=== PATIENT | female | born 1945 | race Caucasian/White ===

== ENCOUNTER → 2019-02-27 | Outpatient (CLI) | payer MEDICARE, OTHER ==
[~2019-02-27] MED LIST: CODACE30; Flomax0.4 MG PO; GABA300; HALO.05TC; LOSA50 PO; Norco 5-325 Ta1 EACH PO; TIZANIDINE HCL2 MG; TIZANIDINE HCL4 MG PO
== END | disposition home or self-care (01) ==
LOC: LAB SHORT 16:38 → LAB EV 16:38
DX: R35.0 Frequency of micturition (principal)
CPT/HCPCS: 87086

== ENCOUNTER 2019-03-19 23:36 | Observation (INO) | payer MEDICARE, OTHER ==
[~2019-03-19] VITALS: Ht 160 cm; Wt 100.0 kg
[~2019-03-19 23:36] MED LIST changes: -Flomax0.4 MG PO; -Norco 5-325 Ta1 EACH PO
[2019-03-20 00:20] LABS: BASOPHILS ABSOLUTE AUTO 0.03 K/mm3 (0.00-0.23); BASOPHILS PERCENT AUTO 0 % (0-2); EOSINOPHILS ABSOLUTE AUTO 0.12 K/mm3 (0.00-0.68); EOSINOPHILS PERCENT AUTO 1 % (0-6); Hematocrit 39.1 % (33.0-51.0); IMMATURE GRAN ABSOLUTE AUTO 0.04 K/mm3 (0.00-0.10); IMMATURE GRAN PERCENT AUTO 0 % (0-1); LYMPHOCYTES ABSOLUTE AUTO 1.86 K/mm3 (0.84-5.20); LYMPHOCYTES PERCENT AUTO 17 % (21-46); MONOCYTES ABSOLUTE AUTO 0.72 K/mm3 (0.16-1.47); MONOCYTES PERCENT AUTO 7 % (4-13); Mean Corpuscular HGB 31.2 pg (26.0-34.0); Mean Corpuscular HGB Conc 33.2 g/dL (31.5-36.5); Mean Corpuscular Volume 94 fL (80-100); Mean Platelet Volume 10.5 fL (9.1-12.4); NEUTROPHILS ABSOLUTE AUTO 8.32 K/mm3 (1.96-9.15); NEUTROPHILS PERCENT AUTO 75 % (41-73); Platelet Count 227 K/mm3 (150-400); RDW Coefficient Variation 12.7 % (11.7-14.2); Red Blood Cell Count 4.17 M/mm3 (3.80-5.20); White Blood Cell Count 11.09 K/mm3 (4.00-11.30)
[2019-03-20 00:37] LABS: Albumin, Blood 3.3 g/dL (3.4-5.0); Albumin/Globulin Ratio 0.9 (0.8-1.8); Bilirubin, Total 0.3 mg/dL (0.1-1.0); Bun/Creatinine Ratio 19.3 (12.0-20.0); Calcium, Blood 8.7 mg/dL (8.5-10.1); Creatinine, Blood 1.09 mg/dL (0.40-1.00); Globulin, Blood 3.6 g/dL (2.2-4.0); Potassium, Blood 3.6 mmol/L (3.5-5.5); Total Protein, Blood 6.9 g/dL (6.4-8.2)
[2019-03-20 00:56] LABS: Source, Urine Clean Catch
[2019-03-20 00:59] LABS: Blood, Urine 2+ (Neg); Glucose Qualitative, Urine Neg (Neg); Ketones, Urine 1+ (Neg); Leukocyte Esterase, Urine 1+ (Neg); Nitrite, Urine Neg (Neg); Protein, Urine 1+ (Neg); Specific Gravity, Urine 1.025 (1.003-1.022); Urobilinogen, Urine 1+ (Normal)
[2019-03-20 01:06] LABS: Appearance, Urine Clear (Clear); Bilirubin, Urine 1+ (Neg); Color, Urine Yellow (P-Yellow)
[2019-03-20 01:07] LABS: Bacteria Few /hpf; Mucus Light (0-Heavy); Red Blood Cells, Urine 0-2 /hpf (0-2); Squamous Epithelial Cells Few /hpf (Few)
[2019-03-20] MEDS ORDERED: Flomax0.4 MG PO (03:44)
[2019-03-20] MEDS ORDERED: Norco 5-325 Ta1 EACH PO (03:44)
--- NOTE | 2019-03-20 07:45 | NUR ---
SHIFT SUMMARY PT WAS A NEW ADMIT THIS AM, ARRIVING ON THE FLOOR AT 0550. SHE WAS ADMITTED FOR KIDNEY STONES AND A UTI. SHE IS A&O X 4, AND INDEPENDENT IN THE ROOM. PT IS RECEIVING CONTINUOUS FLUIDS NS AT 125 ML/HR. WICK CATHETER IN PLACE. PER ER REPORT, PT HAS HAD MINIMAL URINE OUTPUT SINCE ARRIVAL. PT WAS MEDICATED ONCE WITH PRN FENTANYL FOR FLANK AND BACK PAIN. NO COMPLAINTS OF NAUSEA OR SOB. VITAL SIGNS STABLE. NO OTHER ACUTE CHANGES IN PT CONDITION NOTED SINCE ADMISSION. REPORT GIVEN TO ONCOMING RN.
--- NOTE | 2019-03-20 13:54 | NUR ---
[address] KELLER. REQUEST PT HOME MEDS, LOSARTAN, HE DENIED. DID ALFIE LINARES.
--- NOTE | 2019-03-20 15:40 | NUR ---
CALLED DR HERNANDEZ OFF. CALLED IN CONSULT. AURELIO CALLED BACK. HE OUT UNTIL MONDAY. CALLED DR KELLER. TC. CALLED [facility] RE CONSULT
--- NOTE | 2019-03-20 16:55 | NUR ---
PER PCU COMPOSITION PROFESSOR. PT AVERAGING 58-69. HAS DROPPED TO 48 TWICE. THEN PICKS UP. PT ASYMPTOMATIC.
--- NOTE | 2019-03-20 17:16 | NUR ---
PT PLEASANT TODAY. DENIES PAIN AT THIS TIME. STRAINED WICK CATH NO STONE NOTED. NO OTHER CONCERNS AT THIS TIME. BED IN LOW POSITION, CALL LITE IN REACH, CALLS APPROP.
--- NOTE | 2019-03-20 23:38 | NUR ---
PT TRANSFER TO [facility] VIA W/C. ALL BELONGINGS WITH PT AT THE TIME OF TRANSFER. REPORT GIVEN TO KAILEY DE JESUS AND FRAN DE JESUS.
--- NOTE | 2019-03-21 04:48 | NUR ---
SHIFT SUMMARY PT ADMITTED FOR R NEPHROLITHSASIS. FULL CODE. REGULAR DIET. FILTER ALL URINE TO COLLECT STONE AND SEND TO LAB FOR COMPOSITION ANALYSIS. DR. PERALTA CONSULT FOR 2MM STONE AT R UTEREROVESICAL JUNCTION CREATING HYDRONEPHROSIS. CONSULT FOR POSSIBLE STEN. KATHRYN WILL BE OUT UNTIL MONDAY AND WILL THE PATIENT UPON RETURN. PT IS INDEPENDENT IN HER ROOM. FILD START IV TO L FA. PT HAS A FOLE. TAKES MEDICATIONS WHOLE. PT TRANSFERRED FROM ROOM 351 THIS NIGHT. PT DID HAVE COMPLAINTS OF 5/10 PAIN THIS NIGHT. MEDICATED PER EMAR. PT HAS APPEARED TO SLEEP COMFORTABLY MOST OF THE NIGHT WITH NO APPARENT SIGNS OF ACUTE DISTRESS. ABLE TO MAKE NEEDS KNOWN AND CALL LIGHT IN REACH.
[2019-03-21 04:59] LABS: Hematocrit 34.9 % (33.0-51.0); Hemoglobin 11.2 g/dL (11.5-16.0); Mean Corpuscular HGB 30.5 pg (26.0-34.0); Mean Corpuscular HGB Conc 32.1 g/dL (31.5-36.5); Mean Corpuscular Volume 95 fL (80-100); Mean Platelet Volume 10.3 fL (9.1-12.4); Platelet Count 181 K/mm3 (150-400); RDW Coefficient Variation 13.2 % (11.7-14.2); RDW Standard Deviation 46.8 fL (35.1-46.3); Red Blood Cell Count 3.67 M/mm3 (3.80-5.20); White Blood Cell Count 7.74 K/mm3 (4.00-11.30)
[2019-03-21 05:48] LABS: Alanine Aminotransfer (ALT/SGP 24 U/L (12-78); Albumin, Blood 2.7 g/dL (3.4-5.0); Albumin/Globulin Ratio 0.9 (0.8-1.8); Alk Phos 112 U/L (50-136); Anion Gap 6 mmol/L (6-16); Aspartate Aminotrans (AST/SGOT 18 U/L (12-37); Bilirubin, Total 0.3 mg/dL (0.1-1.0); Blood Urea Nitrogen 17 mg/dL (8-24); Bun/Creatinine Ratio 18.5 (12.0-20.0); CO2, Blood 26 mmol/L (21-32); Calcium, Blood 7.9 mg/dL (8.5-10.1); Chloride, Blood 112 mmol/L (98-108); Creatinine, Blood 0.92 mg/dL (0.40-1.00); Globulin, Blood 2.9 g/dL (2.2-4.0); Glomerular Filtration Rate >60 (60-); Glucose, Blood 105 mg/dL (70-99); Phosphorus, Blood 2.7 mg/dL (2.5-4.9); Potassium, Blood 3.9 mmol/L (3.5-5.5); Sodium, Blood 144 mmol/L (136-145); Total Protein, Blood 5.6 g/dL (6.4-8.2)
--- NOTE | 2019-03-21 14:21 | NUR ---
DISCHARGE DISCHARGE INSTRUCTIONS, MEDICATION LIST AND FOLLOW UP APPOINTMENT REVIEWED WITH PT. QUESTIONS/CONCERNS ANSWERED. PT VERBALLY INDICATED UNDERSTANDING OF ALL INSTRUCTIONS RECEIVED. WAITING FOR RIDE HOME AT THIS TIME.
== END 2019-03-21 15:05 | disposition home or self-care (01) ==
LOC: ER 23:36 → MEDS 23:37
PROVIDERS: Emergency Medicine; ADMIT Internal Medicine
DX: N13.2 Hydronephrosis with renal and ureteral calculous obstruction (principal); E86.0 Dehydration; I10 Essential (primary) hypertension; Z79.899 Other long term (current) drug therapy; Z91.013 Allergy to seafood; Z88.8 Allergy status to other drugs, medicaments and biological substances; Z88.2 Allergy status to sulfonamides; Z88.7 Allergy status to serum and vaccine; Z91.09 Other allergy status, other than to drugs and biological substances
CPT/HCPCS: 36415; 51702; 51798; 74176; 80053; 81001; 83690; 84100; 85025; 85027; 87086; 96361; 96365; 96366; 96374; 96375; 96376; 99285-25; A9270-GY; G0378; J0696; J1885; J2405; J3010; J7030; P9612

== ENCOUNTER 2019-05-06 16:59 | Observation (INO) | payer MEDICARE, OTHER ==
[~2019-05-06] VITALS: Ht 165.1 cm; Wt 88.5 kg
[~2019-05-06 16:59] MED LIST changes: +Flomax0.4 MG PO; +Norco 5-325 Ta1 EACH PO
[2019-05-06 17:39] LABS: BASOPHILS ABSOLUTE AUTO 0.04 K/mm3 (0.00-0.23); BASOPHILS PERCENT AUTO 1 % (0-2); EOSINOPHILS ABSOLUTE AUTO 0.16 K/mm3 (0.00-0.68); EOSINOPHILS PERCENT AUTO 2 % (0-6); Hematocrit 43.2 % (33.0-51.0); Hemoglobin 14.1 g/dL (11.5-16.0); IMMATURE GRAN ABSOLUTE AUTO 0.02 K/mm3 (0.00-0.10); IMMATURE GRAN PERCENT AUTO 0 % (0-1); LYMPHOCYTES ABSOLUTE AUTO 2.31 K/mm3 (0.84-5.20); LYMPHOCYTES PERCENT AUTO 32 % (21-46); MONOCYTES ABSOLUTE AUTO 0.71 K/mm3 (0.16-1.47); MONOCYTES PERCENT AUTO 10 % (4-13); Mean Corpuscular HGB 30.8 pg (26.0-34.0); Mean Corpuscular HGB Conc 32.6 g/dL (31.5-36.5); Mean Corpuscular Volume 94 fL (80-100); Mean Platelet Volume 10.3 fL (9.1-12.4); NEUTROPHILS ABSOLUTE AUTO 4.02 K/mm3 (1.96-9.15); NEUTROPHILS PERCENT AUTO 55 % (41-73); Platelet Count 232 K/mm3 (150-400); RDW Coefficient Variation 12.5 % (11.7-14.2); RDW Standard Deviation 43.3 fL (35.1-46.3); Red Blood Cell Count 4.58 M/mm3 (3.80-5.20); White Blood Cell Count 7.26 K/mm3 (4.00-11.30)
[2019-05-06 17:57] LABS: Alanine Aminotransfer (ALT/SGP 35 U/L (12-78); Albumin, Blood 3.9 g/dL (3.4-5.0); Alk Phos 151 U/L (50-136); Anion Gap 4 mmol/L (6-16); Aspartate Aminotrans (AST/SGOT 24 U/L (12-37); Bilirubin, Total 0.4 mg/dL (0.1-1.0); Blood Urea Nitrogen 27 mg/dL (8-24); Bun/Creatinine Ratio 30.6 (12.0-20.0); CO2, Blood 27 mmol/L (21-32); Calcium, Blood 9.3 mg/dL (8.5-10.1); Chloride, Blood 107 mmol/L (98-108); Creatinine, Blood 0.88 mg/dL (0.40-1.00); Glomerular Filtration Rate >60 (60-); Glucose, Blood 99 mg/dL (70-99); Potassium, Blood 3.9 mmol/L (3.5-5.5); Sodium, Blood 138 mmol/L (136-145); Total Protein, Blood 7.9 g/dL (6.4-8.2)
[2019-05-06 18:53] LABS: International Normalized Ratio 0.93; Prothrombin Time Results 9.9 Sec (9.7-11.5)
[2019-05-06] MEDS ORDERED: LORCET 5-325 M1 EACH PO ×2 (19:06→21:16)
[2019-05-06] MEDS ORDERED: LOSARTAN POTASS50 MG PO (19:20)
[2019-05-06 20:16] LABS: Source, Urine Clean Catch
[2019-05-06 20:20] LABS: Bilirubin, Urine Neg (Neg); Blood, Urine Neg (Neg); Glucose Qualitative, Urine Neg (Neg); Ketones, Urine 1+ (Neg); Leukocyte Esterase, Urine Neg (Neg); Nitrite, Urine Neg (Neg); Protein, Urine Neg (Neg); Urobilinogen, Urine NORM (Normal)
[2019-05-06 20:22] LABS: Appearance, Urine Clear (Clear); Color, Urine Yellow (P-Yellow)
--- NOTE | 2019-05-07 04:26 | NUR ---
SHIFT SUMMARY RECIEVED REPORT FROM AJ DE JESUS, ED @ 2026. ARRIVED TO MEDICAL FLOOR VIA STRETCHER @ 2044. TRANSFERED FROM STRETCHER TO BED WITHOUT ASSISTANCE. DID NOT EXHIBIT ANY DISTURBANCES IN GAIT. ADMISSION PROCESS COMPLETE. A/O, ABLE TO MAKE NEEDS KNOWN. COOPERATIVE WITH CARE. ANSWERS QUESTIONS APPROPRIATELY. PATIENT STATED SPEECH APPEARED BACK TO BASELINE. 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 NO TONGUE DEVIATION. C/O HEADACHE; NEW ORDER FOR TYLENOL RECEIVED FROM ON-CALL PHYSICIAN, MEDICATED PER EMAR. APPEARED TO REST MUCH OF SHIFT. REMAINS HYPERTENSIVE. NO OTHER ACUTE CHANGES NOTED OVERNIGHT. BED IN LOWEST POSITION. CALL LIGHT AND BELONGINGS WITHIN REACH. WCTM. REPORT TO TIFFANY DE JESUS.
[2019-05-07 04:43] LABS: Hemoglobin 12.5 g/dL (11.5-16.0); Mean Corpuscular HGB 30.3 pg (26.0-34.0); Mean Corpuscular HGB Conc 32.9 g/dL (31.5-36.5); Mean Corpuscular Volume 92 fL (80-100); Mean Platelet Volume 10.5 fL (9.1-12.4); Platelet Count 208 K/mm3 (150-400); RDW Coefficient Variation 12.3 % (11.7-14.2); RDW Standard Deviation 41.9 fL (35.1-46.3); Red Blood Cell Count 4.12 M/mm3 (3.80-5.20); White Blood Cell Count 6.69 K/mm3 (4.00-11.30)
[2019-05-07 05:08] LABS: Alanine Aminotransfer (ALT/SGP 27 U/L (12-78); Albumin, Blood 3.1 g/dL (3.4-5.0); Albumin/Globulin Ratio 0.9 (0.8-1.8); Alk Phos 124 U/L (50-136); Anion Gap 7 mmol/L (6-16); Aspartate Aminotrans (AST/SGOT 21 U/L (12-37); Bilirubin, Total 0.6 mg/dL (0.1-1.0); Blood Urea Nitrogen 22 mg/dL (8-24); Bun/Creatinine Ratio 23.3 (12.0-20.0); CO2, Blood 25 mmol/L (21-32); Calcium, Blood 8.7 mg/dL (8.5-10.1); Chloride, Blood 108 mmol/L (98-108); Creatinine, Blood 0.95 mg/dL (0.40-1.00); Globulin, Blood 3.3 g/dL (2.2-4.0); Glomerular Filtration Rate >60 (60-); Glucose, Blood 100 mg/dL (70-99); Potassium, Blood 3.7 mmol/L (3.5-5.5); Sodium, Blood 140 mmol/L (136-145); Total Protein, Blood 6.4 g/dL (6.4-8.2)
--- NOTE | 2019-05-07 12:42 | NUR ---
AMBULATES WITHOUT DIFFICULTY OR WALKER DOWN TO ELEVATORS AND BACK. TOLERATED WELL. NOTIFIED.
[2019-05-07] MEDS ORDERED: ASPI81CH PO (13:49)
[2019-05-07] MEDS ORDERED: ATOR40TA PO (13:50)
--- NOTE | 2019-05-07 15:41 | NUR ---
REVIEW D'C INSTRUCTIONS W/PATIENTS AND MULTIPLE OTHER PEOPLE IN ROOM.AWARE TO [facility] MEDS AT [facility] [place]. HAS LOSARTAN, BUT IS NOW TAKING BID. HAS BABY ASA. REVIEW CHOLESTEROL MED AND SIDE EFFECTS.AWARE [facility] WILL CALL HER TO SET UP APPOINTMENT. REVIEW SIGNS OF STROKE W/S.O. AND RELATIVES. PATIENT AWARE NEEDS TO GET TO E.R. STAT IF HAVING ANY SIGNS. ANSWER ALL QUESTIONS. IS PATIENT HERE AND SHE IS NOW STAYING IN THAT ROOM.
== END 2019-05-07 15:23 | disposition home or self-care (01) ==
LOC: ER 16:59 → MEDS 17:00
PROVIDERS: Emergency Medicine; Physician Assistant; ADMIT Internal Medicine
DX: R47.01 Aphasia (principal); I10 Essential (primary) hypertension; G89.29 Other chronic pain; Z79.899 Other long term (current) drug therapy; Z88.5 Allergy status to narcotic agent; Z91.041 Radiographic dye allergy status; Z88.7 Allergy status to serum and vaccine; Z88.2 Allergy status to sulfonamides; Z91.013 Allergy to seafood; Z87.442 Personal history of urinary calculi
CPT/HCPCS: 36415; 70450; 80053; 81003; 85025; 85027; 85610; 85730; 93005; 93010; 93306; 93880; 99285-25; A9270

== ENCOUNTER 2024-03-26 06:13 | Day surgery (SDC) | payer MEDICARE ==
[~2024-03-26] VITALS: Ht 157.5 cm; Wt 79.2 kg
[2024-03-26] VITALS (14 sets, daily range): BP systolic 93–149; BP diastolic 40–57
[~2024-03-26 06:13] MED LIST changes: +AMLO10 PO; +ASPI81CH PO; +ATOR40TA PO; +Acetaminophen 500 MG Tab PO SCH; +CeFAZolin Sodium 2,000 MG in NS 100 ML IV SCH; +Chlorhexidine Mouth Care 15 ML UDC MT SCH; +GABA300 PO; +LORCET 5-325 M1 EACH PO; +LOSARTAN POTASS50 MG PO; +Lactated Ringer's 1,000 ML IV SCH; +OxyCODONE HCL 10 MG TABCR PO SCH; +PRAV20 PO; +Ropivacaine 0.5% HCl/Pf 123.125 MG,EPINEPHrine HCL 0.25 MG,Ketorolac Tromethamine 15 MG... INFIL SCH; +TIZA4 PO; -TIZANIDINE HCL4 MG PO
[2024-03-26] MEDS ORDERED: Tranexamic Acid 100 ML IV SCH (06:29)
[2024-03-26] MEDS ORDERED: FentaNYL Citrate 50 MCG/ML 2 ML Injection ONE ×2 (07:04→08:14)
[2024-03-26] MEDS ORDERED: Dexmedetomidine HCL 200 MCG / 2 ML ONE (07:04)
--- NOTE | 2024-03-26 07:06 | NUR ---
History, Chart, Medications and Allergies reviewed before start of procedure. Pre-Op teaching done. Pt verbalizes understanding. Wheelchaired into Day Surgery.
[2024-03-26] MEDS ORDERED: ACET325 PO (07:19)
[2024-03-26] MEDS ORDERED: Norco 10-325 T1 EACH PO (07:20)
[2024-03-26] MEDS ORDERED: VITAMIN D310 MC4 PO (07:21)
[2024-03-26] MEDS ORDERED: Dexamethasone Sod Phos 10 MG/ML 1ML VIAL ONE ×2 (07:23)
[2024-03-26] MEDS ORDERED: propofoL 20 ML IV ONE (07:23)
[2024-03-26] MEDS ORDERED: Ondansetron HCl 2 MG / ML 2ML Vial ONE ×2 (07:23)
[2024-03-26] MEDS ORDERED: Lidocaine HCl 2% 20 ML MDV ONE (07:23)
[2024-03-26] MEDS ORDERED: DiphenhydrAMINE HCL 25 MG Cap PO PRN (09:40)
[2024-03-26] MEDS ORDERED: HYDROmorphone HCl/Pf 1MG SYR IV PRN (09:40)
[2024-03-26] MEDS ORDERED: Metoclopramide HCl 5MG / ML 2ML Vial IV PRN (09:45)
[2024-03-26] MEDS ORDERED: HYDROmorphone HCl/Pf 1MG SYR ONE (09:45)
[2024-03-26] MEDS ORDERED: Lactated Ringer's 1,000 ML IV SCH (09:45)
[2024-03-26] MEDS ORDERED: OxyCODONE HCL 5 MG TAB PO PRN ×2 (09:45)
[2024-03-26] MEDS ORDERED: Ondansetron HCl 2 MG / ML 2ML Vial IV PRN (09:45)
[2024-03-26] MEDS ORDERED: Magnesium Hydroxide Conc 10 ML UDC PO PRN (09:45)
[2024-03-26] MEDS ORDERED: Prochlorperazine Edisylate 10 mg Vial IV PRN (09:50)
[2024-03-26] MEDS ORDERED: Bisacodyl 10 MG Supp PR PRN (09:50)
[2024-03-26] MEDS ORDERED: Promethazine HCl 25 MG Tab PO PRN (09:50)
[2024-03-26] MEDS ORDERED: ePHEDrine Sulfate 50 MG/ML 1ML Injection ONE (09:51)
--- NOTE | 2024-03-26 11:17 | NUR ---
PT ARRIVED TO ROOM VIA HOSPITAL BED. STATED PAIN 04/18. VSS. SNACKS AND WATER AT BEDSIDE. CONTINUOUS PULSE OX PLACED PT SEEMED TO BE HOLDING BREATH DUE TO PAIN. SATS CURRENTLY 95-100%, NC ON AT 3L. DROWSY BUT AROUSABLE TO VOICE. BOYFRIEND AT BEDSIDE. CALL LIGHT WITHIN REACH.
[2024-03-26] MEDS ORDERED: Gabapentin 300 MG Cap PO SCH (13:00)
[2024-03-26] MEDS ORDERED: CeFAZolin Sodium 2,000 MG in NS 100 ML IV SCH (15:30)
[2024-03-26] MEDS ORDERED: Acetaminophen 500 MG Tab PO SCH (16:00)
[2024-03-26] MEDS ORDERED: Ketorolac Tromethamine 15mg Vial IV SCH (18:00)
--- NOTE | 2024-03-26 18:18 | NUR ---
SHIFT SUMMARY POD 0 LTHA. INCISION SITE COVERED WITH AQUACEL, C/D/I. PPP. PAIN MANAGED PER EMAR. PLEASENT MOOD. IV INFILTRATED THIS AFTERNOON, THIS RN AND TWO OTHER RN'S HAD UNSUCESSFUL ATTEMPTS AT ESTABLISHING NEW IV ACCESS. NOTIFIED. PHYSICAL THERAPY WORKED WITH HER THIS AFTERNOON, WILL WORK WITH THEM AGAIN TOMORROW. EATING/DRINKING/VOIDING. DENIES N/V. CALL LIGHT WITHIN REACH.
[2024-03-26] MEDS ORDERED: Docusate Sodium 100 MG Cap PO SCH (21:00)
[2024-03-26] MEDS ORDERED: Losartan Potassium 50 MG Tab PO SCH (21:00)
[2024-03-26] MEDS ORDERED: TiZANidine HCl 4 MG Tab PO SCH (21:00)
[2024-03-27 01:22] VITALS: BP 104/53
[2024-03-27] MEDS ORDERED: CeFAZolin Sodium 2,000 MG in NS 100 ML IV ONE (04:30)
--- NOTE | 2024-03-27 04:36 | NUR ---
SHIFT SUMMARY PT POD 0 LEFT TOTAL HIP, PT HAS RESTED T/O THE NIGHT. PT REPORTS MINIMAL PAIN. SHE DECLINED TO TAKE SCHEDULED TYLENOL AND TORADOL. SHE STATED THAT SHE WILL CALL IF SHE NEEDS SOMETHING FOR PAIN. PT HAS NOT REQUESTED ANYTHING FOR PAIN T/O THE NIGHT. PT DECLINED NEEDS DURING NURSE ROUNDS. SURGICAL SITE WNL. POST OP VITALS STABLE. PT AMBULATING, VOIDING AND TOLERATING PO INTAKE. BED IN LOWEST POSITION, CALL LIGHT WITHIN REACH.
[2024-03-27 04:43] LABS: BASOPHILS ABSOLUTE AUTO 0.02 K/mm3 (0.00-0.23); BASOPHILS PERCENT AUTO 0 % (0-2); EOSINOPHILS ABSOLUTE AUTO 0.01 K/mm3 (0.00-0.68); EOSINOPHILS PERCENT AUTO 0 % (0-6); Hematocrit 25.7 % (33.0-51.0); Hemoglobin 8.2 g/dL (11.5-16.0); IMMATURE GRAN ABSOLUTE AUTO 0.04 K/mm3 (0.00-0.10); IMMATURE GRAN PERCENT AUTO 0 % (0-1); LYMPHOCYTES ABSOLUTE AUTO 0.99 K/mm3 (0.84-5.20); LYMPHOCYTES PERCENT AUTO 9 % (21-46); MONOCYTES ABSOLUTE AUTO 0.85 K/mm3 (0.16-1.47); MONOCYTES PERCENT AUTO 8 % (4-13); Mean Corpuscular HGB 30.1 pg (26.0-34.0); Mean Corpuscular HGB Conc 31.9 g/dL (31.5-36.5); Mean Corpuscular Volume 95 fL (80-100); Mean Platelet Volume 10.1 fL (9.1-12.4); NEUTROPHILS PERCENT AUTO 82 % (41-73); Platelet Count 242 K/mm3 (150-400); RDW Coefficient Variation 12.4 % (11.7-14.2); RDW Standard Deviation 43.2 fL (35.1-46.3); Red Blood Cell Count 2.72 M/mm3 (3.80-5.20); White Blood Cell Count 10.81 K/mm3 (4.00-11.30)
[2024-03-27 05:03] VITALS: BP 135/47
[2024-03-27 05:03] LABS: Bun/Creatinine Ratio 23.9 (12.0-20.0); Calcium, Blood 8.8 mg/dL (8.5-10.1); Creatinine, Blood 0.79 mg/dL (0.40-1.00); Potassium, Blood 4.8 mmol/L (3.5-5.5)
[2024-03-27] MEDS ORDERED: ASPI81CH PO (07:54)
[2024-03-27 07:57] VITALS: BP 135/43
[2024-03-27] MEDS ORDERED: AmLODIPine Besylate 5 MG Tab PO SCH (09:00)
[2024-03-27] MEDS ORDERED: Cholecalciferol 400 unit Tab PO SCH (09:00)
[2024-03-27] MEDS ORDERED: Pravastatin Sodium 20 MG Tab PO SCH (09:00)
[2024-03-27] MEDS ORDERED: Aspirin 81 MG Chew PO SCH (09:00)
--- NOTE | 2024-03-27 11:55 | NUR ---
DISCHARGE PT WORKED w/ THERAPY. PAIN WELL CONTROLLED. EATING, DRINKING, & VOIDING WELL. TRACI & POLAR PACK SENT w/ PT. ESCORTED OUT VIA W/C.
== END 2024-03-27 11:55 | disposition home or self-care (01) ==
LOC: ORSCMMR 06:13 → ORD 07:30 → ORSCMMR 07:30 → SURS 10:40 → ORSCMMR 03-27 11:55
PROVIDERS: Orthopaedic Surgery
PROC: 0SRB0JZ Replacement of Left Hip Joint with Synthetic Substitute, Open Approach (ICD-10-PCS; principal; 2024-03-26 07:30)
DX: M16.12 Unilateral primary osteoarthritis, left hip (principal); M87.9 Osteonecrosis, unspecified; I12.9 Hypertensive chronic kidney disease with stage 1 through stage 4 chronic kidney disease, or unspecified chronic kidney disease; N18.9 Chronic kidney disease, unspecified; E66.9 Obesity, unspecified; Z68.32 Body mass index [BMI] 32.0-32.9, adult; Z79.899 Other long term (current) drug therapy
CPT/HCPCS: 36415; 72170; 80048; 85025; 87071; 87075; 87205; 88305; 88311; 97110; 97116; 97162; 97530; A6010; A9270; C1713; C1776; J0171; J0690; J0735; J1100; J1170; J1885; J2405; J2704; J2795; J3010; J7120

== ENCOUNTER → 2025-04-15 | Outpatient (CLI) | payer MEDICARE ==
[~2025-04-15] MED LIST changes: +ACET325 PO; -Acetaminophen 500 MG Tab PO SCH; -CeFAZolin Sodium 2,000 MG in NS 100 ML IV SCH; -Chlorhexidine Mouth Care 15 ML UDC MT SCH; -Lactated Ringer's 1,000 ML IV SCH; +Norco 10-325 T1 EACH PO; -OxyCODONE HCL 10 MG TABCR PO SCH; -Ropivacaine 0.5% HCl/Pf 123.125 MG,EPINEPHrine HCL 0.25 MG,Ketorolac Tromethamine 15 MG... INFIL SCH; +VITAMIN D310 MC4 PO
[2025-04-15 12:41] LABS: Anion Gap 11.0 mmol/L (3-11); Blood Urea Nitrogen 26.0 mg/dL (8-24); CO2, Blood 28.0 mmol/L (21-32); Calcium, Blood 9.5 mg/dL (8.5-10.1); Chloride, Blood 105.0 mmol/L (98-108); Creatinine, Blood 0.92 mg/dL (0.40-1.00); Glucose, Blood 110.0 mg/dL (70-99); Potassium, Blood 4.2 mmol/L (3.5-5.5); Sodium, Blood 140.0 mmol/L (136-145)
== END | disposition home or self-care (01) ==
LOC: LAB 12:34 → LAB SHORT 12:34
PROVIDERS: Chiropractor
DX: S20.221A Contusion of right back wall of thorax, initial encounter (principal)
CPT/HCPCS: 80048